=== PATIENT | female | born 1985 | race Caucasian/White ===

== ENCOUNTER 2024-12-05 18:31 | Outpatient (CLI) | payer BC, SELFPAY ==
[2024-12-08 02:23] LABS: HPV Source Cervix; HPV, High Risk by TMA Not Detected
== END 2024-12-05 18:32 | disposition home or self-care (01) ==
PROVIDERS: Visit Provider Physician Assistant
DX: Z12.4 Encounter for screening for malignant neoplasm of cervix (principal); Z11.51 Encounter for screening for human papillomavirus (HPV)
CPT/HCPCS: 87624; 87625; 88141; 88142

== ENCOUNTER 2025-01-26 07:36 | Outpatient (CLI) | payer BC, SELFPAY | END 2025-01-26 07:37 | disposition home or self-care (01) | LOC: NFLDREF 01-31 03:15 | PROVIDERS: Visit Provider Physician Assistant | DX: Z13.6 Encounter for screening for cardiovascular disorders (principal); Z13.1 Encounter for screening for diabetes mellitus; Z13.29 Encounter for screening for other suspected endocrine disorder | CPT/HCPCS: 80061; 82947; 84443 ==